=== PATIENT | male | born 1995 | race Caucasian/White ===

== ENCOUNTER 2021-04-04 10:22 | Emergency (ER) | payer MEDICAID ==
[~2021-04-04] VITALS: Ht 165.1 cm; Wt 82.0 kg
[2021-04-04 11:58] LABS: BASOPHILS % 0.5 % (0.0-2.0); EOSINOPHILS % 2.4 % (0.0-5.0); HEMATOCRIT. 44.4 % (42.0-52.0); HEMOGLOBIN. 14.7 g/dL (14.0-18.0); LYMPHOCYTES % 28.9 % (20.0-50.0); MEAN CORPUSCULAR HEMOGLOBIN 27.6 pg (28.0-32.0); MEAN CORPUSCULAR VOLUME 83.3 fL (80.0-94.0); MONOCYTES % 6.7 % (2.0-8.0); NEUTROPHILS % 61.5 % (40.0-76.0); PLATELET 181 x1000/uL (130-400); RED BLOOD CELL COUNT 5.33 mill/uL (4.7-6.1); RED CELL DISTRIBUTION WIDTH 13.8 % (11.6-14.6)
[2021-04-04 12:03] LABS: CLARITY URINE CLEAR (CLEAR); COLOR URINE YELLOW (YELLOW); KETONES URINE NEGATIVE (NEGATIVE); LEUKOCYTE ESTERASE URINE NEGATIVE (NEGATIVE); NITRITE URINE NEGATIVE (NEGATIVE); OCCULT BLOOD URINE NEGATIVE (NEGATIVE); PROTEIN URINE NEGATIVE (NEGATIVE); SPECIFIC GRAVITY URINE 1.023 (1.005-1.030)
[2021-04-04 12:04] LABS: CHLORIDE 108 mEq/L (98-107)
[2021-04-04 12:08] LABS: INR 0.9; PROTHROMBIN TIME 9.8 sec (9.6-11.0)
[2021-04-04] MEDS ORDERED: MORPHINE SULFATE 4 MG/ML CPJ (NOT FOR IM USE) IV STA (12:28)
[2021-04-04] MEDS ORDERED: ONDANSETRON HCL 4MG/2ML INJ IV STA (12:28)
[2021-04-04] MEDS ORDERED: SODIUM CHLORIDE 0.9% 1,000 ML IV ONE (12:30)
[2021-04-04] MEDS ORDERED: MORPHINE SULFATE 2 MG/ML CPJ (NOT FOR IM USE) IV STA (13:18)
[2021-04-04] MEDS ORDERED: KETOROLAC 30MG/ML VIAL IV ONE (15:30)
[2021-04-04] MEDS ORDERED: IBUP-2030 MT (16:13)
[2021-04-04] MEDS ORDERED: DIATR MEGLU/DIATRIZOATE SOLN 120ML ONE (17:50)
[2021-04-04] MEDS ORDERED: IOHEXOL-300 100 ML BOTTLE ONE (18:52)
[2021-04-04 19:07] VITALS: BP 127/84
== END 2021-04-04 19:08 | disposition home or self-care (01) ==
LOC: ER 10:22
DX: R10.31 Right lower quadrant pain (principal)
CPT/HCPCS: 36415; 74176; 74177; 80053; 81003; 83690; 85025; 85610; 96361; 96374; 96375; 99285; J1885; J2270; J2405; J7030; Q9963; Q9967; Z7610

== ENCOUNTER 2021-04-05 12:11 | Emergency (ER) | payer MEDICAID ==
[~2021-04-05] VITALS: Ht 165.1 cm; Wt 82.0 kg
[~2021-04-05 12:11] MED LIST: IBUP-2030 MT
[2021-04-05 12:26] VITALS: BP 108/58
== END 2021-04-05 16:03 | disposition left against medical advice (07) ==
LOC: ER 12:11
DX: Z53.21 Procedure and treatment not carried out due to patient leaving prior to being seen by health care provider (principal)